=== PATIENT | female | born 1990 | race Caucasian/White ===

== ENCOUNTER 2017-12-13 16:04 | Emergency (ER) | payer OTHER ==
[~2017-12-13] VITALS: Ht 160 cm; Wt 97.1 kg
[~2017-12-13 16:04] MED LIST: Feosol PO; Motrin PO; Percocet 5/325,Endoc PO
[2017-12-13 17:02] LABS: HEMATOCRIT 41.1 % (36.0-46.0); HEMOGLOBIN 14.8 G/DL (11.9-15.5); MCH 29.7 PG (29.0-34.0); MCV 82.5 FL (83-99); NRBC (%) 0.2 /100 WBC (0-0); PLATELET COUNT 279 K/uL (156-360); RBC DIS.WIDTH-CV 12.9 % (11.8-14.6); RBC DIS.WIDTH-SD 38.5 % (39-53); RED BLOOD COUNT 4.98 M/uL (3.80-5.20); WHITE BLOOD COUNT 9.1 K/uL (4.1-10.2)
[2017-12-13 17:12] LABS: CHLORIDE 107 mEq/L (99-109); POTASSIUM 4.1 mEq/L (3.7-5.4); SODIUM 139 mEq/L (136-147)
[2017-12-13 17:14] LABS: GLUCOSE 95 mg/dL (70-99)
[2017-12-13 17:17] LABS: CREATININE 0.8 mg/dL (0.6-1.3); GFR ESTIMATE (CALCULATED) > 59 mL/min/
[2017-12-13 17:18] LABS: UREA NITROGEN (BUN) 10 mg/dL (9-23)
[2017-12-13 17:26] LABS: QUANTITATIVE HCG < 4.0 MIU/ML
[2017-12-13 18:57] VITALS: BP 131/99
== END 2017-12-13 18:57 | disposition home or self-care (01) ==
LOC: RME 16:04 → EME 16:04 → RME 18:57
PROVIDERS: Emergency Medicine
DX: R51 Headache (principal); G43.909 Migraine, unspecified, not intractable, without status migrainosus; F17.200 Nicotine dependence, unspecified, uncomplicated
CPT/HCPCS: 70450; 80048; 84702; 85027; 99281; 99283; J0780; J1100